=== PATIENT | female | born 1965 | race Caucasian/White ===

== ENCOUNTER 2024-06-30 07:04 | Inpatient (IN) | payer OTHER, SELFPAY ==
[2024-06-23 10:20] VITALS: BMI 24.7
[2024-06-30] VITALS (12 sets, daily range): BP systolic 100–150; BP diastolic 56–86; PULSE 67–90; RESP 12–20; TEMP 36.1–36.4; O2SAT 93–100; BMI 24.7
--- NOTE | 2024-06-30 | DI.RAD.S_ITS ---
PROCEDURE: XR LUMBAR SPINE 2-3V INDICATIONS: L5-S1 TLIF TECHNIQUE: << 2 digital images from the OR were acquired. COMPARISON: [facility], , L-SPINE 2-3 VIEWS, 12/02/2016, 11:14. FINDINGS: Lumbar spine curvature and alignment: Normal L3 through S1. Bones: There are no osseous abnormalities. Disc spaces: Anterior/posterior fusion changes at L4-5 and L5-S1 provided by interbody spacer, pedicle screws and interbody struts. Moderate L3-4 degenerative disc disease noted. Soft tissues: No soft tissue swelling, calcification or mass. IMPRESSION: Anterior/posterior fusion L4-5 L5-S1 anatomic alignment Dictated by: Shimon Mckeon M.D. on 07/01/2024 at 11:44 Approved by: Shimon Mckeon M.D. on 07/01/2024 at 11:45
--- NOTE | 2024-06-30 07:49 | SUR.OPER ---
Prone on spine table, head in foam head support, padded chest and pelvic supports, gel pad at knees, lower legs supported by pillows; nipples, genitalia and toes free of pressure, arms secured on foam padded arm boards at <90 degrees abduction. Tape over blanket at thigh secured to table.
[2024-06-30] MEDS: LACTATED RINGERS 1,000 ML 42 ML IV ×2 (08:03→11:13)
[2024-06-30] MEDS: ACETAMINOPHEN 325 MG TABLET 975 MG PO (08:09)
[2024-06-30] MEDS: GABAPENTIN 600 MG TABLET PO (08:09)
[2024-06-30] MEDS: CEFAZOLIN 2 GM/100 ML PREMIX 100 ML IV ×2 (08:53→16:31)
[2024-06-30] MEDS: BUPIVACAINE LIPOSOME 266 MG/20 ML VIAL INJ (09:05)
[2024-06-30] MEDS: BUPIVACAINE 0.25% (PF) 30 ML, EPINEPHrine 0.15 MG INJ (09:06)
--- NOTE | 2024-06-30 11:45 | P.OP_ITS ---
Operative Date/Time/Diagnoses Date of procedure: 06/30/24 Time of procedure: 08:45 Pre-op diagnosis: 1. L5-S1 anterolisthesis 2. L5-S1 foraminal stenosis 3. History of L4-5 fusion with instrumentation Post-op diagnosis: same Procedure & Clinicians Procedure: 1. L5-S1 Postero-lateral and posterior interbody fusion 2. L5-S1 interbody cage placement. 3. L5-S1 decompressive laminectomy with bilateral facetecomies 4. L4-S1 Posterior segmental instrumentation 5. L4-5 left hemilaminectomy and exploration of fusion 6. L4-5 posterolateral fusion 7. [place] of bone marrow from iliac crest 8. Utilization of microsurgical technique and operating microscope Same procedure as scheduled: Yes Indications: Patient has been having chronic back pain and worsening lumbar radiculopathy. Patient was found to L5-S1 anterolisthesis bilateral foraminal stenosis with history of L4-5 fusion correlating with her symptoms. Patient failed multiple conservative management with worsening pain weakness and numbness in her lower extremity. Patient has been having difficulty performing activity of daily living. After discussing risks benefits of treatment options, patient elected proceed with surgery. Surgeon: Idalmis Krishnan Pressure Welder: Elisa Desai Click Yes if Unassisted: No Anesthesia Type: General Operative Notes Closure Type: primary Specimen(s): none sent Prosthetic devices, grafts, tissues, transplants, or devices: Globus revolve screws, Rise cage Estimated Blood Loss (mL): 50 Blood products transfused: none Procedure in detail: Patient was seen in the preoperative area. Risks and benefits of the surgery was discussed with the patient. Informed consent was obtained from the patient and placed in the chart. Surgical site was marked. Patient was taken to the operative room. General anesthesia was administered. Prophylactic antibiotic was given to the patient less than 30 min before the incision was made. Patient was placed into a prone position on the David table. Patient's back was then prepped and draped in the sterile fashion. Time-out was performed at this time. Using patient's previous scar incision was made over the L4-5 L5-S1 interval on the left side. Fascia was incised in line with skin incision. Patient's pre viously placed hardware over the L4-5 level was identified by dissecting down to the level the hardware using a Bovie and a Henson. The locking caps which was removed using globus screwdriver. The locking melisa was then removed from the [place] of the pedicle screws using a Lacy. The pedicle screws were then removed using the screwdriver. The screws were found to have good purchase. The Globus and MARS retractors was then placed into the wound and docked onto the L5 lamina using C-arm guidance. Using microsurgical technique and operating microscope a laminectomy facetectomy was performed by removing the L5 lamina and the L5-S1 facet. The laminectomy and facetectomy was performed in order to decompress patient's cauda equina as well as the nerve roots exiting at the L5- S1 level. The disc space at L5-S1 level was identified next. And a total diskectomy was performed at L5-S1 level. The endplates were decorticated using a rasp and shaver. The total diskectomy and decortication was performed at L5-S1 level in order to to accomplish a L5-S1 fusion. The local bone from the laminectomy and facetectomy was saved for local bone grafting. After the total diskectomy and decortication was completed, Viacel bone graft material was combined with local bone that was harvested earlier. At this time, a separate skin is incision was made over the iliac crest on the right. A Jamshidi needle was inserted into the iliac crest through a separate skin incision. 5 cc of bone marrow aspiration was obtained through the separate skin incision using a Jamshidi needle from the iliac crest. The bone marrow aspiration was combined with local bone and the Viacel bone grafting material. The bone grafting material was placed into the L5-S1 interbody space along with a expandable cage. The cage was expanded to its maximum height using the torque limiting screwdriver. At this time a mirror image incision was made on the right side. The fascia was incised in line with the skin incision. Patient's previously placed hardware on the left side was then removed in the same fashion as it was on the right side. The hardware was also found to have good purchase. The fusion mass on the right side was exposed by performing a right-sided hemilaminectomy at L4-5 level. The hemilaminectomy was performed using the Kerrison rongeur to undercut the lamina at L4-5 as well removing additional epidural scar tissue for purpose of decompressing the epidural space. The fusion mass was explored and was found to have visible motion indicating pseudoarthrosis. Globus MARS retractor was inserted and docked onto the L4-5, L5-S1 posterolateral gutter. Using the power drill, posterior-lateral decortication was performed at L4-5, L5-S1 level until bleeding cortical bone was identified. The remaining bone grafting material was placed into the L4-5, L5-S1 posterior lateral gutter he order to accomplish posterolateral fusion at the L4-5, L5-S1 level. Using the double C-arm technique, pedicle screws were placed into the L4-L5 and S1 pedicles bilaterally. This was done by placing the Jamshidi needle into the pedicles, then placing the guidewires over the Jamshidi needle, and finally placing the cannulated screws over the guidewires bilaterally. After the pedicle screws were placed, 2 titanium rods was locked into the heads of the pedicle screws using locking caps and torque limiting screwdriver. After all the hardware was placed, and confirmed with AP and lateral C-arm imaging, the wound was then irrigated with sterile normal saline and packed with Ray-Barb gauze for 3 min to accomplish hemostasis. After the gauze was removed the deep fascia was closed with #1 Vicryl suture. The subcutaneous layer was closed with 2-0 Vicryl. The skin was closed with skin galen. Patient tolerated the procedure well. There were no complications. The Operation could not have been safely performed without compromising the technical result or length of the procedure, without the assistance of a skilled surgical services asst. The surgical services asst was medically necessary for proper positioning, retraction and manipulation of instruments, proper exposure, surgical preparation, and manipulation of tissue. Complications: none Post-operative Condition: stable Disposition: PACU Plan for aftercare: Admit to inpatient
[2024-06-30] MEDS: ONDANSETRON 4 MG/2 ML INJ IV (12:07)
[2024-06-30] MEDS: HYDROMORPHONE 1 MG INJ IV ×2 (12:07→12:20)
[2024-06-30] MEDS: hydrOXYzine 50 MG/ML INJ 25 MG IM (12:07)
[2024-06-30] MEDS: OXYCODONE IR 5 MG TABLET PO (12:14)
[2024-06-30] MEDS: diazePAM 10 MG/2 ML SYRINGE 2 MG IV (12:26)
[2024-06-30] MEDS: HYDROMORPHONE 0.5 MG INJ IV (13:58)
[2024-06-30] MEDS: LACTATED RINGERS 1,000 ML 125 ML IV ×2 (13:59→15:29)
[2024-06-30] MEDS: DULOXETINE 30 MG CAPSULE 60 MG PO (14:00)
--- NOTE | 2024-06-30 15:14 | PT-IP ANOTE ---
PT eval order received and EMR reviewed. checked with nurse and stated that pt was sleeping but PT can checked. checked pt and family in room. family stated that pt is not ready to do PT and pt is having increase pain. provided pt/family post-op folder for review.
[2024-06-30] MEDS: OXYCODONE IR 10 MG TABLET PO (15:28)
[2024-06-30] MEDS: ACETAMINOPHEN 325 MG TABLET 650 MG PO (16:30)
[2024-06-30] MEDS: DOCUSATE 100 MG CAPSULE PO (21:43)
[2024-06-30] MEDS: PRAVASTATIN 20 MG TABLET 10 MG PO (21:43)
[2024-06-30] MEDS: FAMOTIDINE 20 MG TABLET PO (21:43)
[2024-06-30] MEDS: SENNOSIDES 8.6 MG TABLET 17.2 MG PO (21:43)
[2024-07-01] VITALS: BP 98/59; PULSE 72; RESP 16; TEMP 36.6; O2SAT 99
[2024-07-01] MEDS: CEFAZOLIN 2 GM/100 ML PREMIX 100 ML IV (00:25)
[2024-07-01] MEDS: OXYCODONE IR 10 MG TABLET PO ×2 (01:21→09:26)
[2024-07-01 04:00] VITALS: BP 100/59; PULSE 60; RESP 16; TEMP 36.8; O2SAT 97
[2024-07-01 08:00] VITALS: BP 104/64; PULSE 61; RESP 16; TEMP 36.5; O2SAT 100
[2024-07-01] MEDS: DULOXETINE 30 MG CAPSULE 60 MG PO (08:47)
[2024-07-01] MEDS: DOCUSATE 100 MG CAPSULE PO (08:47)
[2024-07-01] MEDS: FAMOTIDINE 20 MG TABLET PO (08:48)
--- NOTE | 2024-07-01 11:09 | P.DS_ITS ---
History of Present Illness History of Present Illness Date Patient Seen: 07/01/24 Time Patient Seen: 11:09 Chief complaint: Translaminar Interbody Fusion/Laminotomy Narrative: Patient has been having chronic back pain and worsening lumbar radiculopathy. Patient was found to L5-S1 anterolisthesis bilateral foraminal stenosis with history of L4-5 fusion correlating with her symptoms. Patient failed multiple conservative management with worsening pain weakness and numbness in her lower extremity. Patient has been having difficulty performing activity of daily living. After discussing risks benefits of treatment options, patient elected proceed with surgery. Discharge Providers Provider Date of admission: 06/30/24 07:04 Discharge Date: 07/01/24 Consults: 06/30/24 12:44 Consult to Occupational Therapy Evaluate & Treat Comment: Physician Instructions: Evaluate and treat Consult to Physical Therapy Evaluate & Treat Comment: Physician Instructions: Evaluate and Treat Discharge provider: Klaus Moctezuma PA-C Summary Hospital Course Discharge Diagnosis: 1. L5-S1 anterolisthesis 2. L5-S1 foraminal stenosis 3. History of L4-5 fusion with instrumentation Hospital Course: Procedure: 1. L5-S1 Postero-lateral and posterior interbody fusion 2. L5-S1 interbody cage placement. 3. L5-S1 decompressive laminectomy with bilateral facetecomies 4. L4-S1 Posterior segmental instrumentation 5. L4-5 left hemilaminectomy and exploration of fusion 6. L4-5 posterolateral fusion 7. [place] of bone marrow from iliac crest 8. Utilization of microsurgical technique and operating microscope Same procedure as scheduled: Yes Surgeon: Idalmis Krishnan Service Desk Specialist: Elisa Desai Click Yes if Unassisted: No Anesthesia Type: General Operative Notes Closure Type: primary Specimen(s): none sent Prosthetic devices, grafts, tissues, transplants, or devices: Globus revolve screws, Rise cage Estimated Blood Loss (mL): 50 Blood products transfused: none Status at Discharge Cognitive/behavioral status at discharge: oriented Functional status at discharge: uses cane/walker Overall status at discharge: patient is back to baseline Time Spent with Patient Time spent: Less than 30 minutes Exam Vital Signs (past 8 hours): - 07/01/24 04:00 07/01/24 08:00 07/01/24 09:06 Temperature 98.2 F 97.7 F Pulse Rate 60 61 Respiratory Rate 16 16 Blood Pressure 100/59 L 104/64 Pulse Oximetry 97 100 Oxygen Delivery Method Room Air Oxygen Flow Rate 2 2 Fraction of Inspired Oxygen 28 SaO2/FiO2 Ratio 350 Oxygen Delivery Method Room Air Oxygen Flow Rate 2 Narrative Exam Narrative: Observed the patient walking the halls with PT. Met with patient in her room, sitting in the chair comfortably surrounded by family members. No nausea, vomiting, fever or chills. No new numbness or tingling. Pain is localized to the surgical site and controlled with oral medications. Dressing stained with blood. BLE 5/5 EHL, DF, PF, knee flexors and extendors. Resp Effort & Inspection: normal respiratory effort and able to speak in complete sentences [facility] Medical History (Updated 06/23/24 @ 11:26 by Pooja Mayo, RN) Anxiety and depression Neuropathy Fibromyalgia Family history of malignant hyperthermia HLD (hyperlipidemia) Surgical History (Updated 06/23/24 @ 11:36 by Pooja Mayo, RN) History of tonsillectomy History of back surgery (12/02/16) Social History household members: spouse and family Smoking Status: Never smoker alcohol intake: never Discharge Assessment & Plan Assessment and Plan Assessment: Status post TLIF Plan of Treatment: Discharge to home Ambulate with assistive devices. Baseline pain control with acetaminophen 500mg q4hr prn. Prescribed tramadol 50mg qid prn for break through pain and hydroxyzine 25mg qid prn for post operative nausea or spasms. No NSAIDs (ibuprofen or naproxen) for 3 months post-op. No deep bending or twisting at the waist. No lifting more than 10 pounds. Keep dressing clean and dry. Change if it becomes dirty or disrupted. Follow up in clinic in 2 weeks for wound check. Discharge Plan Discharge Plan Patient Disposition: Home Discharge orders & Medications Prescriptions: New tramadol 50 mg tablet 50 mg PO Q4H PRN (Reason: pain) Qty: 40 0RF hydroxyzine pamoate 25 mg capsule 25 mg PO QID PRN (Reason: nausea and vomiting or spasms) Qty: 30 1RF Continued pravastatin 10 MG tablet 10 mg PO HS Qty: 0 acetaminophen [Tylenol Extra Strength] 500 mg Tablet 1,000 mg PO DAILY famotidine [Pepcid] 20 mg Tablet 20 mg PO BID fluticasone propionate 50 mcg/actuation [place],Suspension 1 spray INTRANASAL DAILY Rx Instructions: administer into each nostril duloxetine 60 mg Capsule,Delayed Release(Dr/Ec) 60 mg PO QAM Discontinued ibuprofen 200 mg Tablet 400 mg PO BID Follow up/Referrals: Lashell Collins PA-C [Advanced Title Officer] - 07/19/24 2:30 pm (appt:07/19 @ 2:30 with Praveen BROWN @ [facility] please arrive 15 min prior to your scheduled appointment time) Diet/Activity/Treatments Diet: Diet as Tolerated Activity: No deep bending or twisting at the waist. No lifting more than 10 pounds. Cold/Heat Therapy: Heating pad as needed for pain. Skin/Wound/Dressing Care Report to your healthcare provider any signs of infection, such as:: chills, fever, night sweats and unusual drainage Dressing: May shower. Keep dressings as dry as possible. If dressing becomes wet or dirty, may remove and replace with clean, dry gauze. No bathing or otherwise soaking incisions. Do not apply any creams, lotions, or ointments to incisions. Visit Report/Discharge Packet Instructions: DI for Prescription Opioid Use, DI for Transforaminal Lumbar Interbody Fusion Stand Alone Forms: Patient Portal/API, Stroke Signs & Symptoms, Surgery Discharge Quality VTE Deep Vein Thrombosis/Pulmonary Embolism Present on Admission: No
--- NOTE | 2024-07-01 11:21 | PT.IIE ---
Current Diagnoses Spondylolisthesis, lumbar region (06/30/24) Spinal stenosis, lumbar region without neurogenic claudication (06/30/24) Surgery Performed Operation Date: 06/30/24 08:45 Actual Procedures p L5-S1 TLIF L4-S1 PSF with instrumentation - Idalmis Krishnan MD Surgical History (Last Updated 06/23/24 @ 11:36 by Pooja Mayo, RN) History of back surgery (12/02/16) History of tonsillectomy Medical History (Last Updated 06/23/24 @ 11:26 by Pooja Mayo, RN) Anxiety and depression Family history of malignant hyperthermia Fibromyalgia HLD (hyperlipidemia) Neuropathy Physical Therapy Inpatient Evaluation/Re-Eval M1 PT/OT-IP Prior Functional Status Start: 07/01/24 08:32 Freq: NEEDED Status: Active Protocol: Document 07/01/24 10:44 MB (Rec: 07/01/24 11:21 MB [id number]) Medical Review Prior Functional Status Medical History Reviewed Yes Diet/Fluid Consistency Regular Communication WNLs Mobility and Gait I Activities of Daily Living and IADL's I, looks after small grand- daughter Social History Household Members spouse,family Living Arrangements House Number of Floors (Floors) One Floor Number of Stairs To Enter/Railing? Left rail and four steps to enter Home Environment Standard Height Toilet,Walk in Shower,Built-In Shower Seat Home Equipment Front Wheel Walker,Manual Wheelchair Additional Social History Comment Not working M2 PT-IP Current Condition Start: 07/01/24 08:32 Freq: NEEDED Status: Active Protocol: Document 07/01/24 10:44 MB (Rec: 07/01/24 11:21 MB [id number]) Physical Therapy Current Condition Current Condition Evaluation Date 07/01/24 Treatment Diagnosis L4-S1 TLIF M3 PT-IP Subjective Start: 07/01/24 08:32 Freq: NEEDED Status: Active Protocol: Document 07/01/24 10:44 MB (Rec: 07/01/24 11:21 MB [id number]) Subjective Physical Therapy Visit Type Type Initial Evaluation Visit Start Time 10:44 Visit Stop Time 10:58 Number of VETERINARY TECHNICIAN Visits 0 Physical Therapy Visit Comments Patient Comments Pt reports high pain in bed, just got oxycontin. Back pain in bed 9/10 and decreases to 7 /10 with mobility. Therapy Pain Assessment Pain When Pain Assessed At Rest Pain Present Pain Present Pain Reported Location Lower Back Intensity 9 Scale Used Numeric (0 - 10) M4 PT-IP Mobility and Gait Start: 07/01/24 08:32 Freq: NEEDED Status: Active Protocol: Document 07/01/24 10:44 MB (Rec: 07/01/24 11:21 MB [id number]) PT-Bed Mobility Assessment Rolling Type of Rolling Log Rolling,Roll to Left Level of Assist Standby Assistance Supine to Sit Supine to Sit Standby Assistance Scooting Scooting to Edge of Bed Standby Assistance PT-Transfer Assessment Sit to and From Stand Sit to and from Stand Standby Assistance,1 Person Assistance,Use of Upper Extremities Equipment Transfer Assistive Device Gait Belt,Front Wheeled Walker Orthotic/Prosthetic Devices or Brace: No Transfers Transfer Destination Chair Transfer Technique Ambulation Transfer Ability Level of Assist Standby Assistance Gait Assessment Gait Gait Assistance Required: Standby Assistance Distance (Feet) 150 Able to Maintain Weight Bearing Status Yes During Gait Assistive Devices Assistive Device Gait Belt,Front Wheeled Walker Orthotic/Prosthetic Devices or Brace: No Gait Deviations General Gait Pattern Antalgic Factors Limiting Gait Function Factors Limiting Gait Function Pain Comments Gait Comments Slow gait Stair Climbing Assessment Evaluation Level of Assist On Stairs Standby Assistance Devices Stair Climbing Assistive Devices Left Railing Technique/Endurance Stair Climbing Direction Ascend and Descend Stair Climbing Technique Step to Step Number of Steps Climbed 3 Query Text: Stair Climbing Set # Repetitions (reps) 1 Comments Stair Climbing Comments Facing left rail, side step up right foot first ascend and left foot first descend, both hands on rail PT-Balance Assessment Sitting Balance and Reactions Static Sitting Balance Ability Normal Dynamic Sitting Balance Ability Good Standing Balance and Reactions Static Standing Balance Ability Good Dynamic Standing Balance Ability Good Device Used RW M5 PT-IP Objective Assessments Start: 07/01/24 08:32 Freq: NEEDED Status: Active Protocol: Document 07/01/24 10:44 MB (Rec: 07/01/24 11:21 MB [id number]) Orientation Orientation/Cognition Level of Alertness Alert Orientation Name,Age,Birthday,Month,Date, Year,Day of Week,Place, Situation Language Function Ability No Deficits Noted Safety Awareness Understands Safety Issues Memory Description No Deficits Noted Gross Range of Motion Upper Extremity ROM Assessment Within Functional Limits Lower Extremity ROM Assessment Within Functional Limits Strength Upper Extremity Strength Assessment Within Functional Limits Lower Extremity Strength Assessment Within Functional Limits Coordination Assessment Assessment Coordination Comments Slow post-op Sensation Assessment Comments Sensation Comments Denies paresthesias when asked Muscle Tone Muscle Tone WNL Yes M6 PT-IP Treatment Start: 07/01/24 08:32 Freq: NEEDED Status: Active Protocol: Document 07/01/24 10:44 MB (Rec: 07/01/24 11:21 MB [id number]) Physical Therapy Treatment Education Education Provided Precautions,Post-Op Packet, Safety Other Treatments Other Treatment Performed Practiced log roll and stair technique, ed on set-up on height of walker M7 PT-IP Assessment and Plan Start: 07/01/24 08:32 Freq: NEEDED Status: Active Protocol: Document 07/01/24 10:44 MB (Rec: 07/01/24 11:21 MB [id number]) PT Summary Assessment and Plan Potential Rehabilitation Potential Good Status of Condition at Evaluation Evolving Summary Impairments Pain,Balance,Bed Mobility, Transfers,Gait Assessment Summary Pt is a 59 y/o female POD1 lumbar TLIF. Though she c/o high pain, she has been up to BR with nsg and demonstrates log rolling, transfers, long gait and steps with PT today. nearby during assessment. No further acute PT needs. Recommend up with nsg. Frequency of Treatment Frequency Of Treatment Discharge Precautions Lumbar Precautions Log Roll,No Twisting,Limit Bending,Lifting Restriction of 10 lbs,Gait Belt above Incisional Area Recommendations To Nursing Amount of Assist Needed Standby Assistance Discharge Recommendations PT Discharge Recommendations Home with Assistance Transportation Needs at Discharge Private Vehicle
--- NOTE | 2024-07-01 12:04 | CM.DANOTE ---
Initial DCP Assessment Visit Note Reviewed EMR and team rounds for status updates. Met briefly with pt/family/Ortho PA to introduce self and role, pt was alert and oriented, and was preparing for home d/c. Pt lives modified independently at baseline with her in their own home in [place], he will also be transporting her back home. Pt/family deny any CM assistance resource needs at this time. Payor: Jose Rafael Prado Attending: Dr. Krishnan Pt is a 59 year-old F post-op day 1 from a TLIF surgery. She has a hx of a prior TLIF with cage placement, however there was no further information available on any other hx or conservative efforts tried prior to electing surgery. Pt did not have any postoperative complications, and has all of the DME and family assistance that she will need for home recovery. Discharge Planning/Care Management CM Discharge Assessment Start: 07/01/24 11:58 Freq: Status: Active Protocol: Document 07/01/24 11:59 DPL (Rec: 07/01/24 12:04 DPL [id number]) Discharge Planning Assessment Assigned [employer] Sawyer GABRIEL Kay Advance Directives? No History Provided By Patient,Medical Record Has Patient been admitted in last 30 No days? Prior Living Arrangements House Household Members spouse,family Type of transporation used prior to Drives own vehicle admit Independent with ADL's Yes Is patient alert and oriented? Yes Comment N/A Caregiver for Another No DME Already Rented / Owned Wheelchair,Elevated Toilet Seat,FWW / Walker,Cane Patient/Family Preference OP PT Therapy Barriers to Discharge No Discharge Plan Home Community Services Physical Therapy Transportation Arrangement Spouse Whiteboard Updated in Patient Room with Yes name and ext. # of [employer] Sawyer Review Status In Process Please Provide Date Initial DC 07/01/24 Assessment Was Performed Pre-Anesthesia Assessment Start: 06/23/24 10:20 Freq: Status: Complete Protocol: Document 06/23/24 10:20 LB (Rec: 06/23/24 10:32 LB [id number]) Pre-Anesthesia Assessment PAC Comment 06/23/24 Phone assessment. Patient Information Reviewed Via Phone Assessment Assessment Completed With Patient Diagnostic Results BMP/CMP,CBC Comment 06/04/24 at . Primary Care Provider Chandni Jones Specialist Seen Orthopedist Primary Language Setswana Preferred Language Setswana Director Of Early Childhood Required No Height 167.64 cm Weight 69.4 kg Body Mass Index (BMI) 24.7 Hearing Ability Normal Visual Assist Glasses Dentition Type Teeth, Natural Present Comment Reading glassess. Hx Anesthesia Reactions No Hx Family Anesthesia Reaction Yes: Daughter had MH. Pt has not been tested. 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 Is patient on oxygen? No Does patient have [place]IVAN/SOB No Hx Sleep Apnea Yes: Unsure if she has it now. Currently Taking a Beta Teddy No Can You Climb a Flight of Stairs Without Yes SOB Hx Chest Pain Yes: thinking related to gastric reflux Hx SOB No Hx Syncope or Dizziness No Anti-Coagulant Therapy No Has a Opener Tender No Cardiac Testing No Hx Pacemaker/ICD No Cardiac Clearance Received Not Applicable Dysphagia Yes: With big pills. Gastrointestinal Symptoms Reflux Urinary Catheter Present No Hx Urinary Self Catheterization No Diabetes No Patient No Lactating No Hx Drug Resistant Organism No Presence of External or Internal Medical Yes: Back hardware. Devices Have you had any close contact with No someone diagnosed with COVID-19? Are you experiencing any of these No symptoms symptoms? Comment Denies covid last 2 months. Marital Status Lives With spouse,family Current Living Arrangements RV Comment Building a house. Number of Floors (Floors) One Floor Number of Stairs To Enter/Railing? 4 stairs with railing. Support System Family,Spouse Does the Patient Have Assistance After Yes Surgery Patient Discharge Plan Description Return Home Feels Safe in Current Environment Yes Do you have a plan to hurt yourself or No Plan others? Do You Have Any Spiritual Beliefs That No May Affect Your HC Choices? Do You Have Any Cultural Practices That No May Affect Your HC Choices? Who Can We Speak to About Patient's Care Family and friends. Identifying Code for Release of Patient Declines to issue. Information Emergency Contact Name Federico Alvarado - Emergency Contact Advance Directives? No PAC Instructions Assistance for 24 hours post- op,Durable medical equipment, Medications to take/avoid, Nasal antibiotic,No ETOH/ petroleum product on skin DOS, NPO,Pre-surgical wash,Sturdy shoes/comfortable clothes,Do not bring valuables and remove jewelry
--- NOTE | 2024-07-01 13:01 | PC.NURSE ---
Pt and family agreeable to discharge. Discharge instruction provided to pt regarding stroke s/s, worsening symptoms, medications, followup, proper body mechanics. IV discontinued. Pt wheeled via w/c by PCT to private vehicle at approximately 1124.
== END 2024-07-01 11:24 | disposition home or self-care (01) | DRG 427 ==
PROVIDERS: Admitting Provider Orthopaedic Surgery Orthopaedic Surgery of the Spine; Referring Provider Orthopaedic Surgery Orthopaedic Surgery of the Spine; Visit Provider Orthopaedic Surgery Orthopaedic Surgery of the Spine
PROC: 0SG30AJ Fusion of Lumbosacral Joint with Interbody Fusion Device, Posterior Approach, Anterior Column, Open Approach (ICD-10-PCS; principal; 2024-06-30 08:45)
DX: M43.17 Spondylolisthesis, lumbosacral region (principal); M96.0 Pseudarthrosis after fusion or arthrodesis; M48.07 Spinal stenosis, lumbosacral region; M43.16 Spondylolisthesis, lumbar region; M48.061 Spinal stenosis, lumbar region without neurogenic claudication; M54.16 Radiculopathy, lumbar region; M96.1 Postlaminectomy syndrome, not elsewhere classified; E78.5 Hyperlipidemia, unspecified; F41.9 Anxiety disorder, unspecified; F32.A Depression, unspecified; K21.9 Gastro-esophageal reflux disease without esophagitis; Z98.1 Arthrodesis status
CPT/HCPCS: 72100; 76000; 97161; A9270; C1713; C9290; J0171; J0690; J1100; J1171; J2250; J2405; J2704; J3010; J3360; J3410